=== PATIENT | female | born 1970 | race Caucasian/White ===

== ENCOUNTER 2019-02-10 14:29 | Emergency (ER) | payer OTHER ==
[2019-02-10 15:10] VITALS: BP 120/72
--- NOTE | 2019-02-10 15:29 | UC ---
Complaint Female HPI - HPI Summary HPI Summary: 49-year-old female who feels that she has a possible vaginal infection. She had a yeast infection just a little over a week ago and treated herself with Monistat cream. She states since then she has developed some vaginal odor and discharge. She is sexually active with one person who is also only sexually active with her. She has no history of sexually transmitted diseases. She denies any urinary symptoms. She denies any pelvic pain. - History Of Current Complaint Chief Complaint: UCGeneralIllness Stated Complaint: URINARY Time Seen by Provider: 02/10/19 15:08 Hx Obtained From: Patient Hx Last Menstrual Period: 02/03/19 ?: No Onset/Duration: Gradual Onset Timing: Constant Severity Initially: Mild Severity Currently: Mild Pain Intensity: 0 Character: Not Applicable Aggravating Factor(s): Nothing Associated Signs And Symptoms: Positive: Vaginal Discharge - Vaginal discharge of odorous yellowish-green discharge - Allergies/Home Medications Allergies/Adverse Reactions: Allergies Allergy/AdvReac Type Severity Reaction Status Date / Time No Known Allergies Allergy Verified 02/10/19 15:10 Home Medications: Home Medications NK [No Home Medications Reported] 02/10/19 [History Confirmed 02/10/19] PMH/Surg Hx/FS Hx/Imm Hx Previously Healthy: Yes - Surgical History Surgical History: Yes Surgery Procedure, Year, and Place: C-sections - Family History Known Family History: Positive: Non-Contributory - Social History Lives: With Family Alcohol Use: Rare Substance Use Type: None Smoking Status (MU): Never Smoked Tobacco Review of Systems All Other Systems Reviewed And Are Negative: Yes Genitourinary: Positive: Vaginal/Penile Discharge - Yellowish malodorous vaginal discharge. Physical Exam Triage Information Reviewed: Yes Appearance: Well-Appearing, No Pain Distress, Well-Nourished Vital Signs: Initial Vital Signs Temp 97.0 F 02/10/19 15:04 Pulse 69 02/10/19 15:04 Resp 18 02/10/19 15:04 BP 120/72 02/10/19 15:04 Pulse Ox 100 02/10/19 15:04 Vital Signs Reviewed: Yes Respiratory: Positive: Lungs clear, Normal breath sounds, No respiratory distress, No accessory muscle use Cardiovascular: Positive: RRR, No Murmur, Pulses Normal, Brisk Capillary Refill Abdomen Description: Positive: Nontender, No Organomegaly, Soft. Negative: CVA Tenderness (R), Distended, Guarding, Hepatomegaly, McBurney's Point Tenderness, Splenomegaly Bowel Sounds: Positive: Present Pelvic Exam: Positive: Other - Patient preferred not to have a pelvic exam. Musculoskeletal Exam: Normal Neurological Exam: Normal Psychological Exam: Normal Skin Exam: Normal Complaint Female Dx - Course Course Of Treatment: The patient has been comfortable here. She preferred not have a pelvic exam there is for I had her do a vaginal swab and that will be sent to the lab. She also obtain a urine specimen for gonorrhea and chlamydia. I advised her we would call her with the culture results if they are positive. She is to follow- up with her primary care provider if any worsening symptoms. - Differential Dx/Diagnosis Provider Diagnosis: Vaginal discharge Discharge ED - Sign-Out/Discharge Documenting (check all that apply): Patient Departure All imaging exams completed and their final reports reviewed: No Studies - Discharge Plan Condition: Good Disposition: HOME Patient Education Materials: Bacterial Vaginosis (ED) Referrals: Soila Jones PA [Primary Care Provider] - Additional Instructions: If you do not hear from us by 3:00 tomorrow afternoon then call here for the results of the vaginal swab. We will call you if the gonorrhea and chlamydia tests come back positive. If you have any worsening symptoms follow-up with your primary care provider. - Billing Disposition and Condition Condition: GOOD Disposition: Home
[2019-02-11 14:43] LABS: Chlamydia trachomatis NAA Negative (Negative); Neisseria gonorrhoeae (GC) NAA Negative (Negative)
--- NOTE | 2019-02-12 07:19 | ED ---
Progress - Progress Note Progress Note: Positive BV: Script for flagyl sent, please inform the patient Course/Dx - Diagnoses Provider Diagnoses: Vaginal discharge Discharge ED - Sign-Out/Discharge Documenting (check all that apply): Patient Departure All imaging exams completed and their final reports reviewed: No Studies - Discharge Plan Condition: Good Disposition: HOME Prescriptions: metroNIDAZOLE [Flagyl 500 MG TAB] 500 mg PO TID #21 tab Patient Education Materials: Bacterial Vaginosis (ED) Referrals: Soila Jones PA [Primary Care Provider] - Additional Instructions: If you do not hear from us by 3:00 tomorrow afternoon then call here for the results of the vaginal swab. We will call you if the gonorrhea and chlamydia tests come back positive. If you have any worsening symptoms follow-up with your primary care provider. - Billing Disposition and Condition Condition: GOOD Disposition: Home
== END 2019-02-10 15:42 | disposition home or self-care (01) ==
LOC: UCCORT 14:29
DX: N89.8 Other specified noninflammatory disorders of vagina (principal)
CPT/HCPCS: 87480; 87491; 87510; 87591; 87660; 99201; G0463